=== PATIENT | male | born 1975 | race Caucasian/White ===

== ENCOUNTER → 2018-01-02 | Outpatient (CLI) | payer OTHER ==
[~2018-01-02] MED LIST: BUPIVACAINE 0.25% 30 ML SDV ONE; LIDOCAINE 1% 300 MG/30 ML SDV ONE
== END ==
LOC: FIMAGING 12:34
PROVIDERS: ATTEND Family Medicine
PROC: 3E0U4GC Introduction of Other Therapeutic Substance into Joints, Percutaneous Endoscopic Approach (ICD-10-PCS; principal; 2018-01-02)
DX: M77.8 Other enthesopathies, not elsewhere classified (principal)